=== PATIENT | female | born 1965 | race African-American/Black ===

== ENCOUNTER 2018-02-23 23:09 | Emergency (ER) | payer MEDICARE, OTHER ==
[~2018-02-23] VITALS: Ht 167.6 cm; Wt 121.4 kg
[~2018-02-23 23:09] MED LIST: ALBU8HFA IH; AMLO-511 PO; CARV3 PO; CHOL500045 PO; DIVA-78 PO; FLUP10 PO
[2018-02-23] MEDS ORDERED: DIVA-78 PO (23:37)
[2018-02-23] MEDS ORDERED: POTA10TA14 PO (23:37)
[2018-02-23] MEDS ORDERED: AMLO10TA55 PO (23:37)
[2018-02-23] MEDS ORDERED: AZIL1TAB2 PO (23:37)
[2018-02-23] MEDS ORDERED: METF10004 PO (23:37)
[2018-02-23] MEDS ORDERED: PERP16TA5 PO (23:37)
[2018-02-23] MEDS ORDERED: FURO20TA4 PO (23:37)
[2018-02-23 23:44] LABS: GLUCOSE,POINT OF CARE 106 MG/DL (70-110)
[2018-02-23 23:57] LABS: BASOPHILS % (AUTO) 0.4 % (0.0-2.0); HEMATOCRIT 36.7 % (36-46); HEMOGLOBIN 12.4 g/dL (12.0-16.0); LYMPHOCYTES # (AUTO) 3.1 K/uL (1.0-4.8); LYMPHOCYTES % (AUTO) 37.3 % (22.0-44.0); MEAN CORPUSCULAR HEMOGLOBIN 30.2 pg (26.0-34.0); MEAN CORPUSCULAR HGB CONC 33.8 G/dL (31.0-37.0); MEAN CORPUSCULAR VOLUME 90 fL (80-100); MONOCYTES # (AUTO) 0.6 K/uL (0.1-1.0); MONOCYTES % (AUTO) 7.1 % (2.0-9.0); NEUTROPHILS # (AUTO) 4.5 K/uL (1.8-7.7); NEUTROPHILS % (AUTO) 54.2 % (40.0-70.0); PLATELET COUNT (AUTO) 322 K/uL (150-450); RED CELL DISTRIBUTION WIDTH 14.3 % (11.5-14.5)
[2018-02-24 00:16] LABS: CALCIUM, TOTAL 9.6 mg/dL (8.8-10.5); CREATININE 1.57 mg/dL (0.60-1.30); POTASSIUM 3.5 mmol/L (3.5-5.1)
[2018-02-24 00:21] LABS: ALBUMIN 2.9 g/dL (3.4-5.0); BILIRUBIN,TOTAL 0.2 mg/dL (0.1-1.0); TOTAL PROTEIN, SERUM 7.4 g/dL (6.4-8.2)
[2018-02-24 00:56] LABS: APPEARANCE,URINE CLOUDY (CLEAR); BILIRUBIN,URINE NEGATIVE (NEGATIVE); GLUCOSE, URINE (UA) NEGATIVE (NEGATIVE); KETONES,URINE TRACE mg/dL (NEGATIVE); LEUKOCYTE ESTERASE ,URINE SMALL (NEGATIVE); NITRATE,URINE NEGATIVE (NEGATIVE); OCCULT BLOOD,URINE NEGATIVE (NEGATIVE); PROTEIN,URINE NEGATIVE (NEGATIVE)
[2018-02-24 01:14] LABS: BACTERIA,URINE Rare /HPF (None Seen); RBC,URINE 0-2 /HPF (0-2); SQUAMOUS EPITHELIAL CELL,UR Few /LPF (None Seen)
[2018-02-24] MEDS: SODIUM CHLORIDE 0.9% 1,000 ML IV ONE (02:41)
[2018-02-24 04:03] VITALS: BP 135/90
== END 2018-02-24 04:25 | disposition home or self-care (01) ==
LOC: EMS 23:10
DX: K85.90 Acute pancreatitis without necrosis or infection, unspecified (principal); I10 Essential (primary) hypertension; E11.9 Type 2 diabetes mellitus without complications; F31.9 Bipolar disorder, unspecified; F20.9 Schizophrenia, unspecified
CPT/HCPCS: 36415; 80053; 81001; 82962; 83690; 84703; 85025; 99285; J7030

== ENCOUNTER 2019-03-06 12:55 | Emergency (ER) | payer MEDICARE, OTHER ==
[~2019-03-06] VITALS: Ht 170.2 cm; Wt 125.0 kg
[~2019-03-06 12:55] MED LIST changes: -ALBU8HFA IH; -AMLO-511 PO; +AMLO10TA55 PO; +AZIL1TAB2 PO; -CARV3 PO; -CHOL500045 PO; -FLUP10 PO; +FURO20TA4 PO; +METF-446 PO; +PERP16TA5 PO; +POTA10TA14 PO
[2019-03-06] MEDS ORDERED: KETOROLAC TROMETHAMINE 30 MG/ML VIAL IM ONE (14:15)
[2019-03-06 14:35] LABS: GLUCOSE,POINT OF CARE 105 MG/DL (70-110)
[2019-03-06 14:45] LABS: GLUCOSE,POINT OF CARE 106 MG/DL (70-110)
[2019-03-06 15:20] VITALS: BP 133/62
== END 2019-03-06 15:20 | disposition home or self-care (01) ==
LOC: EMS 12:56
DX: R51 Headache (principal); R11.0 Nausea; E11.9 Type 2 diabetes mellitus without complications; I10 Essential (primary) hypertension; F20.9 Schizophrenia, unspecified; Z98.51 Tubal ligation status; Z79.84 Long term (current) use of oral hypoglycemic drugs
CPT/HCPCS: 81025; 82962; 96372; 99283; J1885

== ENCOUNTER 2020-10-30 10:56 | Emergency (ER) | payer MEDICARE, OTHER ==
[~2020-10-30] VITALS: Ht 170.2 cm; Wt 118.2 kg
[~2020-10-30 10:56] MED LIST changes: +DIVA-112 PO; -DIVA-78 PO
[2020-10-30] MEDS ORDERED: ACETAMINOPHEN 325 MG TABLET PO ONE (12:45)
[2020-10-30 13:24] LABS: EOSINOPHILS % (AUTO) 0.9 % (1.0-6.0); HEMATOCRIT 37.5 % (36-46); HEMOGLOBIN 12.3 g/dL (12.0-16.0); LYMPHOCYTES # (AUTO) 1.9 K/uL (1.0-4.8); LYMPHOCYTES % (AUTO) 36.9 % (22.0-44.0); MEAN CORPUSCULAR HEMOGLOBIN 30.5 pg (26.0-34.0); MEAN CORPUSCULAR HGB CONC 32.9 G/dL (31.0-37.0); MEAN CORPUSCULAR VOLUME 93 fL (80-100); MONOCYTES # (AUTO) 0.4 K/uL (0.1-1.0); MONOCYTES % (AUTO) 7.8 % (2.0-9.0); NEUTROPHILS # (AUTO) 2.8 K/uL (1.8-7.7); NEUTROPHILS % (AUTO) 53.4 % (40.0-70.0); PLATELET COUNT (AUTO) 276 K/uL (150-450); RED BLOOD CELL COUNT(AUTO) 4.05 MIL/uL (4.00-5.20); RED CELL DISTRIBUTION WIDTH 15.5 % (11.5-14.5)
[2020-10-30 13:39] LABS: CALCIUM, TOTAL 10.1 mg/dL (8.8-10.5); CREATININE 1.51 mg/dL (0.60-1.30); POTASSIUM 4.2 mmol/L (3.5-5.1)
[2020-10-30 13:46] LABS: ALBUMIN 3.1 g/dL (3.4-5.0); BILIRUBIN,TOTAL 0.3 mg/dL (0.1-1.0); TOTAL PROTEIN, SERUM 7.7 g/dL (6.4-8.2)
[2020-10-30 13:59] LABS: URIC ACID 8.5 mg/dL (2.6-7.2)
[2020-10-30 14:29] LABS: APPEARANCE,URINE CLOUDY (CLEAR); BILIRUBIN,URINE NEGATIVE (NEGATIVE); GLUCOSE, URINE (UA) NEGATIVE (NEGATIVE); KETONES,URINE TRACE mg/dL (NEGATIVE); LEUKOCYTE ESTERASE ,URINE TRACE (NEGATIVE); NITRATE,URINE NEGATIVE (NEGATIVE); OCCULT BLOOD,URINE NEGATIVE (NEGATIVE); PROTEIN,URINE NEGATIVE (NEGATIVE); UROBILINOGEN,URINE 0.2 mg/dL (<=1.0)
[2020-10-30 14:38] LABS: BACTERIA,URINE Few /HPF (None Seen); RBC,URINE None Seen /HPF (0-2); SQUAMOUS EPITHELIAL CELL,UR Many /LPF (None Seen); WBC,URINE 0-2 /HPF (0-5)
[2020-10-30 15:10] VITALS: BP 135/68
[2020-10-30] MEDS ORDERED: PredniSONE 20 MG TABLET PO ONE (15:15)
== END 2020-10-30 15:24 | disposition home or self-care (01) ==
LOC: EMS 10:56
DX: M10.9 Gout, unspecified (principal); F25.9 Schizoaffective disorder, unspecified; E11.9 Type 2 diabetes mellitus without complications; I10 Essential (primary) hypertension; Z98.51 Tubal ligation status; Z79.899 Other long term (current) drug therapy
CPT/HCPCS: 36415; 80053; 80164; 81001; 82962; 83880; 84550; 85025; 99283; J7512

== ENCOUNTER 2022-09-05 22:11 | Emergency (ER) | payer MEDICARE, OTHER ==
[~2022-09-05] VITALS: Ht 170.2 cm; Wt 130.4 kg
[2022-09-05 22:44] LABS: BASOPHILS % (AUTO) 0.4 % (0.0-2.0); EOSINOPHILS % (AUTO) 1.1 % (1.0-6.0); HEMATOCRIT 36.1 % (36-46); HEMOGLOBIN 11.7 g/dL (12.0-16.0); LYMPHOCYTES # (AUTO) 2.4 K/uL (1.0-4.8); LYMPHOCYTES % (AUTO) 31.4 % (22.0-44.0); MEAN CORPUSCULAR HGB CONC 32.4 G/dL (31.0-37.0); MEAN CORPUSCULAR VOLUME 87 fL (80-100); MONOCYTES # (AUTO) 0.5 K/uL (0.1-1.0); NEUTROPHILS # (AUTO) 4.6 K/uL (1.8-7.7); NEUTROPHILS % (AUTO) 60.1 % (40.0-70.0); PLATELET COUNT (AUTO) 323 K/uL (150-450); RED BLOOD CELL COUNT(AUTO) 4.17 MIL/uL (4.00-5.20); RED CELL DISTRIBUTION WIDTH 15.7 % (11.5-14.5)
[2022-09-05 22:47] LABS: COVID AG,FIA SOURCE NASAL SWAB
[2022-09-05 22:53] LABS: CALCIUM, TOTAL 9.7 mg/dL (8.8-10.5); CREATININE 2.29 mg/dL (0.60-1.30); POTASSIUM 3.8 mmol/L (3.5-5.1)
[2022-09-05 23:00] LABS: ALBUMIN 3.1 g/dL (3.4-5.0); BILIRUBIN,TOTAL 0.2 mg/dL (0.1-1.0); TOTAL PROTEIN, SERUM 7.9 g/dL (6.4-8.2)
[2022-09-05 23:06] LABS: INFLUENZA TYPE A NEGATIVE FOR TYPE A (NEGATIVE); INFLUENZA TYPE B NEGATIVE FOR TYPE B (NEGATIVE)
[2022-09-05] MEDS ORDERED: BISMUTH SUBSALICYLATE 525 MG/30 ML SUSPENSION UDCUP PO ONE (23:15)
[2022-09-06 00:09] LABS: APPEARANCE,URINE HAZY (CLEAR); BILIRUBIN,URINE NEGATIVE (NEGATIVE); GLUCOSE, URINE (UA) NEGATIVE (NEGATIVE); KETONES,URINE NEGATIVE (NEGATIVE); LEUKOCYTE ESTERASE ,URINE TRACE (NEGATIVE); NITRATE,URINE NEGATIVE (NEGATIVE); OCCULT BLOOD,URINE NEGATIVE (NEGATIVE); PH,URINE 5.5 (5.0-8.0); PROTEIN,URINE TRACE mg/dL (NEGATIVE); SPECIFIC GRAVITIY, URINE 1.028 (1.003-1.030); UROBILINOGEN,URINE <=1.0 mg/dL (<=1.0)
[2022-09-06 00:20] LABS: BACTERIA,URINE Few /HPF (None Seen); RBC,URINE 0-2 /HPF (0-2); SQUAMOUS EPITHELIAL CELL,UR Moderate /LPF (None Seen)
[2022-09-06] MEDS ORDERED: ONDA-104 PO (01:16)
[2022-09-06 01:25] VITALS: BP 109/61
== END 2022-09-06 02:30 | disposition home or self-care (01) ==
LOC: EMS 22:13
DX: R10.12 Left upper quadrant pain (principal); R74.8 Abnormal levels of other serum enzymes; F31.9 Bipolar disorder, unspecified; E10.22 Type 1 diabetes mellitus with diabetic chronic kidney disease; I12.9 Hypertensive chronic kidney disease with stage 1 through stage 4 chronic kidney disease, or unspecified chronic kidney disease; N18.9 Chronic kidney disease, unspecified; Z98.51 Tubal ligation status; Z20.822 Contact with and (suspected) exposure to COVID-19
CPT/HCPCS: 71045; 80053; 80164; 81001; 83690; 85025; 87804; 99284; 36415-L1; 36415-TC

== ENCOUNTER 2022-11-09 17:26 | Emergency (ER) | payer MEDICARE, OTHER ==
[~2022-11-09] VITALS: Ht 170.2 cm; Wt 122.7 kg
[~2022-11-09 17:26] MED LIST changes: +ONDA-104 PO
[2022-11-09] MEDS ORDERED: ACETAMINOPHEN 500 MG TABLET PO ONE (18:30)
[2022-11-09 20:24] VITALS: BP 133/74
== END 2022-11-09 20:36 | disposition home or self-care (01) ==
LOC: EMS 17:27
DX: R51.9 Headache, unspecified (principal); F31.9 Bipolar disorder, unspecified; E11.9 Type 2 diabetes mellitus without complications; I10 Essential (primary) hypertension; F20.9 Schizophrenia, unspecified; Z98.51 Tubal ligation status
CPT/HCPCS: 70450; 99284

== ENCOUNTER 2024-02-29 13:24 | Emergency (ER) | payer MEDICARE, OTHER ==
[~2024-02-29] VITALS: Ht 170.2 cm; Wt 120.0 kg
[2024-02-29 13:42] VITALS: BP 95/50; PULSE 72; RESP 18; TEMP 97.4
[2024-02-29 13:59] LABS: APPEARANCE,URINE HAZY (CLEAR); BILIRUBIN,URINE NEGATIVE (NEGATIVE); COLOR,URINE YELLOW (YELLOW); GLUCOSE, URINE (UA) NEGATIVE (NEGATIVE); KETONES,URINE NEGATIVE (NEGATIVE); LEUKOCYTE ESTERASE ,URINE LARGE (NEGATIVE); NITRATE,URINE NEGATIVE (NEGATIVE); OCCULT BLOOD,URINE NEGATIVE (NEGATIVE); PH,URINE 5.5 (5.0-8.0); PROTEIN,URINE TRACE mg/dL (NEGATIVE); SPECIFIC GRAVITIY, URINE 1.015 (1.003-1.030); UROBILINOGEN,URINE <=1.0 mg/dL (<=1.0)
[2024-02-29 14:04] LABS: BACTERIA,URINE Moderate /HPF (None Seen); RBC,URINE 0-2 /HPF (0-2); SQUAMOUS EPITHELIAL CELL,UR Many /LPF (None Seen)
[2024-02-29] MEDS ORDERED: ACET-66 PO (14:33)
[2024-02-29] MEDS ORDERED: CEPH-558 PO (14:33)
[2024-02-29] MEDS ORDERED: PHEN-674 PO (14:33)
[2024-02-29] MEDS ORDERED: MICO15CR9 VG (14:42)
[2024-02-29] MEDS: CEPHALEXIN MONOHYDRATE 500 MG CAPSULE PO ONE (14:50)
[2024-02-29] MEDS: ACETAMINOPHEN 500 MG TABLET PO ONE (14:51)
[2024-02-29] MEDS: PHENAZOPYRIDINE HCL 100 MG TABLET PO ONE (14:51)
== END 2024-02-29 15:00 | disposition home or self-care (01) ==
LOC: EMS 13:24
DX: N39.0 Urinary tract infection, site not specified (principal); E11.9 Type 2 diabetes mellitus without complications; I10 Essential (primary) hypertension
CPT/HCPCS: 81001; 87086; 87186; 99284; Z7502; Z7610

== ENCOUNTER 2024-04-21 11:25 | Emergency (ER) | payer MEDICARE, OTHER ==
[~2024-04-21] VITALS: Ht 170.2 cm; Wt 118.2 kg
[~2024-04-21 11:25] MED LIST changes: +ACET-66 PO; -AMLO10TA55 PO; -AZIL1TAB2 PO; +CEPH-558 PO; -DIVA-112 PO; -FURO20TA4 PO; -METF-446 PO; +MICO15CR9 VG; -ONDA-104 PO; -PERP16TA5 PO; +PHEN-674 PO; -POTA10TA14 PO
[2024-04-21] MEDS ORDERED: FURO20TA4 PO (11:31)
[2024-04-21] MEDS ORDERED: DIVA-112 PO (11:31)
[2024-04-21] MEDS ORDERED: AMLO10TA55 PO (11:31)
[2024-04-21] MEDS ORDERED: AZIL1TAB2 PO (11:31)
[2024-04-21] MEDS ORDERED: ATOR20TA65 PO (11:31)
[2024-04-21] MEDS ORDERED: DULA0.75 SQ (11:31)
[2024-04-21 11:33] VITALS: BP 97/54; PULSE 72; RESP 18; TEMP 98.6; O2SAT 98
[2024-04-21] MEDS ORDERED: POLY119P3 PO (11:35)
[2024-04-21] MEDS: FAMOTIDINE 20 MG/2 ML VIAL IVP ONE (12:33)
[2024-04-21] MEDS: MAG HYDROX/ALUMINUM HYD/SIMETH ES 30 ML SUSPENSION UDCUP PO ONE (12:33)
[2024-04-21 12:48] LABS: BASOPHILS % (AUTO) 0.3 % (0.0-2.0); EOSINOPHILS % (AUTO) 0.6 % (1.0-6.0); LYMPHOCYTES # (AUTO) 2.5 K/uL (1.0-4.8); LYMPHOCYTES % (AUTO) 34.8 % (22.0-44.0); MEAN CORPUSCULAR HEMOGLOBIN 31.4 pg (26.0-34.0); MEAN CORPUSCULAR HGB CONC 33.3 G/dL (31.0-37.0); MEAN CORPUSCULAR VOLUME 94 fL (80-100); MONOCYTES # (AUTO) 0.4 K/uL (0.1-1.0); MONOCYTES % (AUTO) 5.6 % (2.0-9.0); NEUTROPHILS # (AUTO) 4.3 K/uL (1.8-7.7); NEUTROPHILS % (AUTO) 58.7 % (40.0-70.0); PLATELET COUNT (AUTO) 283 K/uL (150-450); RED BLOOD CELL COUNT(AUTO) 4.14 MIL/uL (4.00-5.20); RED CELL DISTRIBUTION WIDTH 13.9 % (11.5-14.5); WHITE BLOOD COUNT (AUTO) 7.3 K/uL (4.5-11.0)
[2024-04-21 13:05] LABS: CALCIUM, TOTAL 9.5 mg/dL (8.8-10.5); CREATININE 1.86 mg/dL (0.60-1.30); POTASSIUM 3.6 mmol/L (3.5-5.1)
[2024-04-21 13:11] LABS: BILIRUBIN,DIRECT 0.1 mg/dL (0.00-0.20); BILIRUBIN,TOTAL 0.4 mg/dL (0.1-1.0); TOTAL PROTEIN, SERUM 7.5 g/dL (6.4-8.2)
[2024-04-21] MEDS: SODIUM CHLORIDE 0.9% 1,000 ML IV ONE (14:17)
== END 2024-04-21 15:48 | disposition home or self-care (01) ==
LOC: EMS 11:25
DX: R10.30 Lower abdominal pain, unspecified (principal); R87.1 Abnormal level of hormones in specimens from female genital organs; R74.8 Abnormal levels of other serum enzymes; E11.9 Type 2 diabetes mellitus without complications; I10 Essential (primary) hypertension
CPT/HCPCS: 99283; 96374; 96361; 80048; 80076; 83690; 84702; 84703; 85025; 36415; J3490; J7030

== ENCOUNTER 2024-04-26 19:18 | Emergency (ER) | payer MEDICARE, OTHER ==
[~2024-04-26] VITALS: Ht 170.2 cm; Wt 113.6 kg
[~2024-04-26 19:18] MED LIST changes: -ACET-66 PO; +AMLO10TA55 PO; +ATOR20TA65 PO; +AZIL1TAB2 PO; -CEPH-558 PO; +DIVA-112 PO; +DULA0.75 SQ; +FURO20TA4 PO; -MICO15CR9 VG; -PHEN-674 PO; +POLY119P3 PO
[2024-04-26 19:30] VITALS: TEMP 98.6
[2024-04-26 20:33] LABS: BASOPHILS % (AUTO) 0.2 % (0.0-2.0); HEMATOCRIT 38.3 % (36-46); HEMOGLOBIN 12.6 g/dL (12.0-16.0); LYMPHOCYTES # (AUTO) 2.9 K/uL (1.0-4.8); LYMPHOCYTES % (AUTO) 36.9 % (22.0-44.0); MEAN CORPUSCULAR HEMOGLOBIN 31.2 pg (26.0-34.0); MEAN CORPUSCULAR HGB CONC 32.9 G/dL (31.0-37.0); MEAN CORPUSCULAR VOLUME 95 fL (80-100); MONOCYTES # (AUTO) 0.5 K/uL (0.1-1.0); MONOCYTES % (AUTO) 7.1 % (2.0-9.0); NEUTROPHILS # (AUTO) 4.3 K/uL (1.8-7.7); NEUTROPHILS % (AUTO) 54.8 % (40.0-70.0); PLATELET COUNT (AUTO) 260 K/uL (150-450); RED BLOOD CELL COUNT(AUTO) 4.04 MIL/uL (4.00-5.20); RED CELL DISTRIBUTION WIDTH 14.3 % (11.5-14.5); WHITE BLOOD COUNT (AUTO) 7.8 K/uL (4.5-11.0)
[2024-04-26 20:43] LABS: APPEARANCE,URINE HAZY (CLEAR); BILIRUBIN,URINE NEGATIVE (NEGATIVE); COLOR,URINE YELLOW (YELLOW); GLUCOSE, URINE (UA) NEGATIVE (NEGATIVE); KETONES,URINE NEGATIVE (NEGATIVE); LEUKOCYTE ESTERASE ,URINE LARGE (NEGATIVE); NITRATE,URINE NEGATIVE (NEGATIVE); OCCULT BLOOD,URINE NEGATIVE (NEGATIVE); PH,URINE 5.5 (5.0-8.0); PROTEIN,URINE TRACE mg/dL (NEGATIVE); SPECIFIC GRAVITIY, URINE 1.026 (1.003-1.030)
[2024-04-26 20:53] LABS: CALCIUM, TOTAL 9.3 mg/dL (8.8-10.5); CREATININE 2.09 mg/dL (0.60-1.30); POTASSIUM 3.7 mmol/L (3.5-5.1)
[2024-04-26 20:58] LABS: BACTERIA,URINE Moderate /HPF (None Seen); RBC,URINE 0-2 /HPF (0-2)
[2024-04-26 20:59] LABS: HYALINE CASTS, URINE 0-2 /LPF (None Seen); MUCUS,URINE Rare LPF (None Seen); SQUAMOUS EPITHELIAL CELL,UR Few /LPF (None Seen)
[2024-04-26 21:02] LABS: URINALYSIS COMMENT Few Trichomonas seen
[2024-04-26 21:18] VITALS: BP 101/71; PULSE 69; RESP 16; O2SAT 100
[2024-04-26] MEDS: CEPHALEXIN MONOHYDRATE 500 MG CAPSULE PO ONE (23:06)
[2024-04-26] MEDS: MetroNIDAZOLE 500 MG TABLET PO ONE (23:07)
[2024-04-27] MEDS ORDERED: POLY17PO62 PO (00:38)
[2024-04-27] MEDS ORDERED: CEPH-558 PO (00:38)
== END 2024-04-27 01:38 | disposition home or self-care (01) ==
LOC: EMS 19:18
DX: A59.00 Urogenital trichomoniasis, unspecified (principal); N39.0 Urinary tract infection, site not specified; K59.00 Constipation, unspecified; R10.31 Right lower quadrant pain; E11.9 Type 2 diabetes mellitus without complications; I10 Essential (primary) hypertension; F20.9 Schizophrenia, unspecified; F31.9 Bipolar disorder, unspecified; Z98.51 Tubal ligation status; Z79.899 Other long term (current) drug therapy
CPT/HCPCS: 74176; 80048; 81001; 83690; 85025; 87086; 87186; 99284

== ENCOUNTER 2024-12-20 19:22 | Emergency (ER) | payer MEDICARE, OTHER ==
[~2024-12-20] VITALS: Ht 170.2 cm; Wt 118.2 kg
[~2024-12-20 19:22] MED LIST changes: +CEPH-558 PO; +POLY17PO62 PO
[2024-12-20 19:32] VITALS: BP 105/70; PULSE 71; RESP 18; TEMP 97.5; O2SAT 98
[2024-12-20 21:49] LABS: COVID AG,FIA SOURCE NASAL SWAB
[2024-12-20 21:55] LABS: BASOPHILS % (AUTO) 0.7 % (0.0-2.0); EOSINOPHILS % (AUTO) 1.3 % (1.0-6.0); HEMOGLOBIN 13.2 g/dL (12.0-16.0); LYMPHOCYTES # (AUTO) 3.1 K/uL (1.0-4.8); LYMPHOCYTES % (AUTO) 43.4 % (22.0-44.0); MEAN CORPUSCULAR HEMOGLOBIN 30.5 pg (26.0-34.0); MEAN CORPUSCULAR VOLUME 93 fL (80-100); MONOCYTES # (AUTO) 0.5 K/uL (0.1-1.0); MONOCYTES % (AUTO) 6.7 % (2.0-9.0); NEUTROPHILS # (AUTO) 3.4 K/uL (1.8-7.7); NEUTROPHILS % (AUTO) 47.9 % (40.0-70.0); PLATELET COUNT (AUTO) 277 K/uL (150-450); RED BLOOD CELL COUNT(AUTO) 4.32 MIL/uL (4.00-5.20); RED CELL DISTRIBUTION WIDTH 13.8 % (11.5-14.5); WHITE BLOOD COUNT (AUTO) 7.1 K/uL (4.5-11.0)
[2024-12-20 22:00] LABS: ALCOHOL, URINE DRUG SCREEN NEGATIVE (NEGATIVE); AMPHET/METH SCREEN,URINE NEGATIVE (NEGATIVE); BARBITURATE SCREEN, URINE NEGATIVE (NEGATIVE); BENZODIAZEPINES SCREEN,URINE NEGATIVE (NEGATIVE); CANNABINOID SCREEN,URINE NEGATIVE (NEGATIVE); COCAINE SCREEN,URINE NEGATIVE (NEGATIVE); METHADONE SCREEN, URINE NEGATIVE (NEGATIVE); OPIATE SCREEN,URINE NEGATIVE (NEGATIVE); PHENCYCLIDINE SCREEN,URINE NEGATIVE (NEGATIVE)
[2024-12-20 22:00] LABS: CALCIUM, TOTAL 9.2 mg/dL (8.8-10.5); CREATININE 1.67 mg/dL (0.60-1.30); POTASSIUM 4.3 mmol/L (3.5-5.1)
[2024-12-20 22:06] LABS: ALBUMIN 2.9 g/dL (3.4-5.0); BILIRUBIN,DIRECT 0.1 mg/dL (0.00-0.20); BILIRUBIN,TOTAL 0.3 mg/dL (0.1-1.0); TOTAL PROTEIN, SERUM 7.4 g/dL (6.4-8.2)
[2024-12-20] MEDS ORDERED: FAMO20 PO (22:17)
[2024-12-20 22:18] LABS: PH,URINE DRUG SCREEN 5.5 (5.0-8.0)
[2024-12-20 22:40] LABS: SARS-COV2 (COVID) ANTIGEN,FIA Negative (Negative)
== END 2024-12-20 22:28 | disposition home or self-care (01) ==
LOC: EMS 19:22
DX: K21.9 Gastro-esophageal reflux disease without esophagitis (principal); K59.00 Constipation, unspecified; I12.9 Hypertensive chronic kidney disease with stage 1 through stage 4 chronic kidney disease, or unspecified chronic kidney disease; E11.22 Type 2 diabetes mellitus with diabetic chronic kidney disease; N18.9 Chronic kidney disease, unspecified; F31.9 Bipolar disorder, unspecified; F25.9 Schizoaffective disorder, unspecified; Z88.0 Allergy status to penicillin; Z98.51 Tubal ligation status; Z79.899 Other long term (current) drug therapy; Z20.822 Contact with and (suspected) exposure to COVID-19
CPT/HCPCS: 99284; 76705; 87426; 80048; 80076; 83690; 85025; 36415; 80307; G0480

== ENCOUNTER 2025-03-26 12:38 | Emergency (ER) | payer MEDICARE, OTHER ==
[~2025-03-26] VITALS: Ht 170.2 cm; Wt 128.0 kg
[~2025-03-26 12:38] MED LIST changes: +FAMO20 PO
[2025-03-26 12:49] VITALS: TEMP 98.2
[2025-03-26 12:55] VITALS: BP 102/55; PULSE 79; RESP 19; O2SAT 96
[2025-03-26] MEDS: ACETAMINOPHEN 500 MG TABLET PO ONE (13:41)
[2025-03-26] MEDS: KETOROLAC TROMETHAMINE 60 MG/2 ML VIAL IM ONE (13:41)
[2025-03-26] MEDS ORDERED: ACET-66 PO (13:45)
[2025-03-26] MEDS ORDERED: METH-659 PO (13:45)
[2025-03-26] MEDS ORDERED: IBUP-1554 PO (13:45)
== END 2025-03-26 15:02 | disposition home or self-care (01) ==
LOC: EMS 12:48
DX: S39.012A Strain of muscle, fascia and tendon of lower back, initial encounter (principal); F25.9 Schizoaffective disorder, unspecified; R60.9 Edema, unspecified; E11.9 Type 2 diabetes mellitus without complications; F31.9 Bipolar disorder, unspecified; I10 Essential (primary) hypertension; Z98.51 Tubal ligation status; Z88.0 Allergy status to penicillin; Z79.899 Other long term (current) drug therapy; X58.XXXA Exposure to other specified factors, initial encounter; Y93.89 Activity, other specified; Y92.89 Other specified places as the place of occurrence of the external cause; Y99.8 Other external cause status
CPT/HCPCS: 99283; 96372; J1885

== ENCOUNTER 2025-04-24 08:30 | Emergency (ER) | payer MEDICARE, OTHER ==
[~2025-04-24] VITALS: Ht 170.2 cm; Wt 118.2 kg
[~2025-04-24 08:30] MED LIST changes: +ACET-66 PO; +IBUP-1554 PO; +METH-659 PO
[2025-04-24 09:25] VITALS: TEMP 98.1
[2025-04-24] MEDS: LIDOCAINE 5% TRANSDERMAL PATCH TD ONE (12:29)
[2025-04-24] MEDS: KETOROLAC TROMETHAMINE 30 MG/ML VIAL IM ONE (12:29)
[2025-04-24] MEDS ORDERED: METH-659 PO (12:52)
[2025-04-24] MEDS ORDERED: IBUP-1492 PO (12:53)
[2025-04-24 12:56] VITALS: BP 127/69; PULSE 78; RESP 18; O2SAT 97
== END 2025-04-24 13:27 | disposition home or self-care (01) ==
LOC: EMS 08:33
DX: M54.42 Lumbago with sciatica, left side (principal); E11.9 Type 2 diabetes mellitus without complications; F20.9 Schizophrenia, unspecified; F31.9 Bipolar disorder, unspecified; I10 Essential (primary) hypertension; Z79.899 Other long term (current) drug therapy; Z88.0 Allergy status to penicillin; Z98.51 Tubal ligation status
CPT/HCPCS: 99283; 82962; 96372; J1885

== ENCOUNTER 2025-05-16 23:43 | Emergency (ER) | payer MEDICARE, OTHER ==
[~2025-05-16] VITALS: Ht 170.2 cm; Wt 120.5 kg
[~2025-05-16 23:43] MED LIST changes: +IBUP-1492 PO
[2025-05-17 01:01] VITALS: BP 114/61; PULSE 75; RESP 16; TEMP 97.7; O2SAT 98
[2025-05-17] MEDS: LIDOCAINE 5% TRANSDERMAL PATCH TD ONE (03:26)
[2025-05-17] MEDS: KETOROLAC TROMETHAMINE 30 MG/ML VIAL IM ONE (03:26)
== END 2025-05-17 04:00 | disposition home or self-care (01) ==
LOC: EMS 05-17 00:38
DX: S39.012A Strain of muscle, fascia and tendon of lower back, initial encounter (principal); M25.552 Pain in left hip; E11.9 Type 2 diabetes mellitus without complications; F25.9 Schizoaffective disorder, unspecified; F31.9 Bipolar disorder, unspecified; G89.29 Other chronic pain; I10 Essential (primary) hypertension; Z88.0 Allergy status to penicillin; Z98.51 Tubal ligation status; Z79.899 Other long term (current) drug therapy; X58.XXXA Exposure to other specified factors, initial encounter; Y93.89 Activity, other specified; Y92.89 Other specified places as the place of occurrence of the external cause; Y99.8 Other external cause status
CPT/HCPCS: 99283; 82962; 96372; J1885

== ENCOUNTER 2025-06-01 15:25 | Emergency (ER) | payer MEDICARE, OTHER ==
[~2025-06-01] VITALS: Ht 170.2 cm; Wt 118.2 kg
[2025-06-01 15:37] VITALS: BP 111/67; PULSE 79; RESP 18; TEMP 98.2; O2SAT 99
[2025-06-01 16:01] LABS: GLUCOMETER DEV NAME(LOC) AHU.; GLUCOSE,POINT OF CARE 99 MG/DL (70-110)
[2025-06-01 16:23] LABS: PLATELET COUNT (AUTO) 343 K/uL (150-450); RED BLOOD CELL COUNT(AUTO) 3.99 MIL/uL (4.00-5.20); RED CELL DISTRIBUTION WIDTH 15.0 % (11.5-14.5); WHITE BLOOD COUNT (AUTO) 7.1 K/uL (4.5-11.0)
[2025-06-01 16:25] LABS: COVID AG,FIA SOURCE NASAL SWAB
[2025-06-01 16:31] LABS: CALCIUM, TOTAL 9.4 mg/dL (8.8-10.5); CREATININE 1.62 mg/dL (0.60-1.30); GLOMERULAR FILTR. RATE CALC 39.0 mL/min (>60); GLUCOSE,RANDOM 99.0 mg/dL (70-110); SODIUM SERUM 139.0 mmol/L (136-145); UREA NITROGEN, BLOOD 36.0 mg/dL (7-18)
[2025-06-01 16:48] LABS: SARS-COV2 (COVID) ANTIGEN,FIA Negative (Negative)
[2025-06-01] MEDS: ACETAMINOPHEN 500 MG TABLET PO ONE (16:49)
== END 2025-06-01 17:30 | disposition home or self-care (01) ==
LOC: EMS 15:25
DX: F41.9 Anxiety disorder, unspecified (principal); E11.9 Type 2 diabetes mellitus without complications; F20.9 Schizophrenia, unspecified; F31.9 Bipolar disorder, unspecified; G89.29 Other chronic pain; I10 Essential (primary) hypertension; Z98.51 Tubal ligation status; Z88.0 Allergy status to penicillin; Z79.899 Other long term (current) drug therapy; Z20.822 Contact with and (suspected) exposure to COVID-19
CPT/HCPCS: 99283; 87426; 80048; 82962; 85025; 36415; G0480

== ENCOUNTER 2025-06-07 11:39 | Emergency (ER) | payer MEDICARE, OTHER ==
[~2025-06-07] VITALS: Ht 170.2 cm; Wt 118.2 kg
[~2025-06-07 11:39] MED LIST changes: -CEPH-558 PO; -IBUP-1492 PO; -IBUP-1554 PO; -METH-659 PO; -POLY119P3 PO; -POLY17PO62 PO
[2025-06-07 11:46] VITALS: BP 110/66; PULSE 72; RESP 20; TEMP 98.3; O2SAT 99
[2025-06-07 12:00] LABS: GLUCOMETER DEV NAME(LOC) ERT.7; GLUCOSE,POINT OF CARE 154 MG/DL (70-110)
[2025-06-07] MEDS ORDERED: METH-659 PO (12:19)
[2025-06-07] MEDS ORDERED: IBUP-1492 PO (12:19)
[2025-06-07] MEDS ORDERED: LIDO-57 TP (12:19)
[2025-06-07] MEDS: KETOROLAC TROMETHAMINE 60 MG/2 ML VIAL IM ONE (12:30)
[2025-06-07] MEDS: LIDOCAINE 5% TRANSDERMAL PATCH TD ONE (12:30)
== END 2025-06-07 12:50 | disposition home or self-care (01) ==
LOC: EMS 11:40
DX: G89.29 Other chronic pain (principal); M54.50 Low back pain, unspecified; F31.9 Bipolar disorder, unspecified; E11.9 Type 2 diabetes mellitus without complications; I10 Essential (primary) hypertension; F20.9 Schizophrenia, unspecified; Z88.0 Allergy status to penicillin; Z79.899 Other long term (current) drug therapy; Z98.51 Tubal ligation status
CPT/HCPCS: 99283; 82962; 96372; J1885

== ENCOUNTER 2025-06-08 18:00 | Emergency (ER) | payer MEDICARE, OTHER ==
[~2025-06-08] VITALS: Ht 170.2 cm; Wt 118.2 kg
[~2025-06-08 18:00] MED LIST changes: +IBUP-1492 PO; +LIDO-57 TP; +METH-659 PO
[2025-06-08 18:01] VITALS: TEMP 98.5
[2025-06-08 18:44] LABS: PLATELET COUNT (AUTO) 295 K/uL (150-450); RED BLOOD CELL COUNT(AUTO) 3.80 MIL/uL (4.00-5.20); RED CELL DISTRIBUTION WIDTH 15.1 % (11.5-14.5); WHITE BLOOD COUNT (AUTO) 6.2 K/uL (4.5-11.0)
[2025-06-08 18:51] LABS: CALCIUM, TOTAL 8.9 mg/dL (8.8-10.5); CREATININE 1.79 mg/dL (0.60-1.30); GLOMERULAR FILTR. RATE CALC 35.0 mL/min (>60); GLUCOSE,RANDOM 131.0 mg/dL (70-110); SODIUM SERUM 141.0 mmol/L (136-145); UREA NITROGEN, BLOOD 33.0 mg/dL (7-18)
[2025-06-08 18:55] LABS: ERYTHROCYTE SEDIMENTATION RATE 41 MM/HR (0-30)
[2025-06-08] MEDS: METOCLOPRAMIDE HCL 10 MG TABLET PO ONE (22:51)
[2025-06-08] MEDS: ACETAMINOPHEN 500 MG TABLET PO ONE (22:52)
[2025-06-08 23:26] VITALS: BP 127/81; PULSE 77; RESP 18; O2SAT 96
== END 2025-06-08 23:32 | disposition home or self-care (01) ==
LOC: EMS 18:00
DX: R51.9 Headache, unspecified (principal); F31.9 Bipolar disorder, unspecified; E11.9 Type 2 diabetes mellitus without complications; I10 Essential (primary) hypertension; D64.9 Anemia, unspecified; F25.9 Schizoaffective disorder, unspecified; G89.29 Other chronic pain; M54.9 Dorsalgia, unspecified; Z79.899 Other long term (current) drug therapy; Z88.0 Allergy status to penicillin; Z98.51 Tubal ligation status
CPT/HCPCS: 80048; 80164; 82962; 85025; 85651; 99283

== ENCOUNTER 2025-07-13 14:19 | Emergency (ER) | payer MEDICARE, MEDICAID ==
[~2025-07-13] VITALS: Ht 170.2 cm; Wt 118.2 kg
[2025-07-13 14:34] VITALS: BP 145/84; PULSE 80; RESP 16; TEMP 98.6; O2SAT 99
[2025-07-13] MEDS ORDERED: DOCU-385 PO (15:03)
[2025-07-13] MEDS: DOCUSATE SODIUM 100 MG CAPSULE PO ONE (15:55)
[2025-07-13] MEDS: SODIUM PHOSPHATE,MONO-DIBASIC 133 ML ENEMA PR ONE (15:55)
== END 2025-07-13 16:24 | disposition home or self-care (01) ==
LOC: EMS 14:20
DX: K59.00 Constipation, unspecified (principal); E11.9 Type 2 diabetes mellitus without complications; F20.9 Schizophrenia, unspecified; F31.9 Bipolar disorder, unspecified; I10 Essential (primary) hypertension; G89.29 Other chronic pain; Z98.51 Tubal ligation status; Z88.0 Allergy status to penicillin; Z79.899 Other long term (current) drug therapy
CPT/HCPCS: 99284; Z7502; Z7610

== ENCOUNTER 2025-07-19 01:19 | Emergency (ER) | payer MEDICARE, OTHER ==
[~2025-07-19] VITALS: Ht 170.2 cm; Wt 118.2 kg
[~2025-07-19 01:19] MED LIST changes: -ACET-66 PO; +DOCU-385 PO; -IBUP-1492 PO; -LIDO-57 TP; -METH-659 PO
[2025-07-19 01:37] VITALS: TEMP 98.8
[2025-07-19] MEDS: ACETAMINOPHEN 500 MG TABLET PO ONE (02:19)
[2025-07-19] MEDS: KETOROLAC TROMETHAMINE 30 MG/ML VIAL IM ONE (02:20)
[2025-07-19 03:15] VITALS: BP 127/73; PULSE 73; RESP 18; O2SAT 97
== END 2025-07-19 03:58 | disposition home or self-care (01) ==
LOC: EMS 01:22
DX: M25.552 Pain in left hip (principal); M79.662 Pain in left lower leg; E11.9 Type 2 diabetes mellitus without complications; F20.9 Schizophrenia, unspecified; F31.9 Bipolar disorder, unspecified; G89.29 Other chronic pain; I10 Essential (primary) hypertension; Z88.0 Allergy status to penicillin; Z98.51 Tubal ligation status; Z79.899 Other long term (current) drug therapy
CPT/HCPCS: 99283; 96372; J1885